=== PATIENT | female | born 1995 | race African-American/Black ===

== ENCOUNTER 2017-06-03 23:16 | Emergency (ER) | payer SELFPAY ==
[~2017-06-03] VITALS: Ht 167.6 cm; Wt 91.6 kg
[2017-06-03 23:37] VITALS: BP_SYST 132
[2017-06-03] MEDS ORDERED: NACL 0.9% 1,000 ML IV ONE ×2 (23:40→23:45)
[2017-06-03] MEDS ORDERED: ONDANSETRON HCL 4 MG/2 ML VIAL IVP ONE (23:45)
[2017-06-03 23:57] LABS: BASOPHILS % (AUTO) 0.5 % (0.0-2.0); EOSINOPHILS # (AUTO) 0.1 K/uL (0.0-0.4); EOSINOPHILS % (AUTO) 1.9 % (0.0-4.0); HEMATOCRIT 41.4 % (36-48); HEMOGLOBIN 13.4 g/dL (12.0-16.0); LYMPHOCYTES # (AUTO) 2.1 K/uL (1.0-5.5); LYMPHOCYTES % (AUTO) 36.5 % (20.5-51.5); MEAN CORPUSCULAR HEMOGLOBIN 29 pg (27-31); MEAN CORPUSCULAR HGB CONC 33 % (32-36); MEAN CORPUSCULAR VOLUME 90 fL (79.0-98.0); MONOCYTES # (AUTO) 0.4 K/uL (0.0-1.0); MONOCYTES % (AUTO) 6.9 % (1.7-9.3); NEUTROPHILS # (AUTO) 3.2 K/uL (1.8-7.7); NEUTROPHILS % (AUTO) 54.2 % (40.0-70.0); PLATELET COUNT (AUTO) 351 K/uL (130-430); RED CELL DISTRIBUTION WIDTH 13.3 % (9.0-15.0); WHITE BLOOD COUNT (AUTO) 5.8 K/uL (4.8-10.8)
[2017-06-04 00:13] LABS: ALBUMIN 3.6 g/dL (3.4-4.8); CALCIUM 8.6 mg/dL (8.4-11.0); CREATININE 1.14 mg/dL (0.55-1.30); TOTAL BILIRUBIN 0.1 mg/dL (0.0-1.0)
[2017-06-04] MEDS ORDERED: POTASSIUM CHLORIDE 10 MEQ TAB.PRT.SR PO ONE (00:30)
[2017-06-04 02:15] LABS: BILIRUBIN,URINE NEGATIVE (NEGATIVE); BLOOD, URINE NEGATIVE (NEGATIVE); CLARITY/URINE SL HAZY (CLEAR); COLOR,URINE YELLOW (YELLOW); GLUCOSE,URINE NEGATIVE (NEGATIVE); KETONES,URINE NEGATIVE (NEGATIVE); LEUKOCYTE ESTERASE ,URINE NEGATIVE (NEGATIVE); NITRITE, URINE NEGATIVE (NEGATIVE); PROTEIN URINE NEGATIVE (NEGATIVE); UROBILINOGEN,URINE 0.2 (0.2-1.0)
[2017-06-04 02:36] LABS: BARBITURATE, URINE NEGATIVE (NEG <=200); BENZODIAZEPINE, URINE NEGATIVE (NEG <=150); COCAINE, URINE NEGATIVE (NEG <=150); METHAMPHETAMINES SCREEN,URINE NEGATIVE (NEG <=500); OPIATE, URINE NEGATIVE (NEG <=100); PHENCYCLIDINE SCREEN,URINE NEGATIVE (NEG <=25); UR TRICYCLIC ANTIDEPRESSANTS NEGATIVE (NEG <=300); URINE AMPHETAMINE NEGATIVE (NEG <=500); URINE METHADONE NEGATIVE (NEG <=200); URINE OXYCODONE SCREEN NEGATIVE (NEG <=100); URINE PROPOXYPHENE SCREEN NEGATIVE (NEG <=300)
[2017-06-04 02:37] LABS: CANNABINOID, URINE POSITIVE (NEG <=50)
[2017-06-04 03:03] VITALS: BP_SYST 128
== END 2017-06-04 03:03 | disposition home or self-care (01) ==
LOC: SED 23:16
DX: E87.6 Hypokalemia (principal); R11.2 Nausea with vomiting, unspecified; R03.0 Elevated blood-pressure reading, without diagnosis of hypertension
CPT/HCPCS: 36415; 80053; 80307; 81003; 81025; 82150; 83690; 85025; 96361; 96374; 99284; J2405; J7030

== ENCOUNTER 2017-12-17 20:39 | Emergency (ER) | payer SELFPAY ==
[~2017-12-17] VITALS: Ht 167.6 cm; Wt 92.1 kg
[2017-12-17 20:47] VITALS: BP_SYST 148
[2017-12-17 21:48] LABS: BILIRUBIN,URINE NEGATIVE (NEGATIVE); BLOOD, URINE NEGATIVE (NEGATIVE); CLARITY/URINE CLEAR (CLEAR); COLOR,URINE YELLOW (YELLOW); GLUCOSE,URINE NEGATIVE (NEGATIVE); KETONES,URINE NEGATIVE (NEGATIVE); LEUKOCYTE ESTERASE ,URINE NEGATIVE (NEGATIVE); NITRITE, URINE NEGATIVE (NEGATIVE); PH,URINE 5.5 (5.0-8.0); PROTEIN URINE NEGATIVE (NEGATIVE); UROBILINOGEN,URINE 0.2 (0.2-1.0)
[2017-12-18 00:10] VITALS: BP_SYST 148
== END 2017-12-18 00:10 | disposition home or self-care (01) ==
LOC: SED 20:39
DX: S80.01XA Contusion of right knee, initial encounter (principal); S00.83XA Contusion of other part of head, initial encounter; R03.0 Elevated blood-pressure reading, without diagnosis of hypertension; X58.XXXA Exposure to other specified factors, initial encounter; Y93.89 Activity, other specified; Y92.89 Other specified places as the place of occurrence of the external cause; Y99.8 Other external cause status
CPT/HCPCS: 70486-TC; 81003; 81025; 99285

== ENCOUNTER 2018-09-23 21:32 | Emergency (ER) | payer SELFPAY ==
[~2018-09-23] VITALS: Ht 167.6 cm; Wt 89.8 kg
[2018-09-23 21:45] VITALS: BP_SYST 130
[2018-09-23 21:51] VITALS: BP_SYST 130
[2018-09-23] MEDS ORDERED: DIPHENHYDRAMINE HCL 25 MG CAPSULE PO ONE (22:00)
[2018-09-23] MEDS ORDERED: PREDNISONE 20 MG TABLET PO ONE (22:00)
== END 2018-09-23 22:05 | disposition home or self-care (01) ==
LOC: SED 21:32
DX: L23.89 Allergic contact dermatitis due to other agents (principal)
CPT/HCPCS: 99283; J7512; Q0163

== ENCOUNTER 2018-12-11 09:15 | Emergency (ER) | payer MEDICAID ==
[~2018-12-11] VITALS: Ht 167.6 cm; Wt 90.7 kg
[2018-12-11 09:15] VITALS: BP_SYST 100
--- NOTE | 2018-12-11 09:15 | NUR ---
BROUGHT BACK TO BED #7 AND TRIAGED, REPORT GIVEN TO AFSHIN
--- NOTE | 2018-12-11 09:20 | NUR ---
pt arrives from home w/ c/o left foot pain since 11/13. Pt stated that she was getting out of the shower and somehow injured her foot. No other complaints at the moment.
--- NOTE | 2018-12-11 09:27 | NUR ---
ER at bedside examining patient.
--- NOTE | 2018-12-11 09:33 | NUR ---
X-ray at the bedside.
[2018-12-11 09:58] VITALS: BP_SYST 100
--- NOTE | 2018-12-11 10:00 | NUR ---
Patient given written and verbal discharge instructions and verbalizes understanding. ER MD discussed with patient the results and treatment provided. Patient in stable condition. ID arm band removed. Rx of Motrin given. Patient educated on pain management and to follow up with PMD. Pain Scale 3/10.Opportunity for questions provided and answered. Medication side effect fact sheet provided.
== END 2018-12-11 10:00 | disposition home or self-care (01) ==
LOC: SED 09:15
DX: S93.401A Sprain of unspecified ligament of right ankle, initial encounter (principal); X50.1XXA Overexertion from prolonged static or awkward postures, initial encounter; Y93.89 Activity, other specified; Y92.89 Other specified places as the place of occurrence of the external cause; Y99.8 Other external cause status
CPT/HCPCS: 99283

== ENCOUNTER 2020-07-28 20:25 | Emergency (ER) | payer MEDICAID ==
[~2020-07-28] VITALS: Ht 167.6 cm; Wt 72.6 kg
[2020-07-28 20:35] VITALS: BP_SYST 111
[2020-07-28 20:58] LABS: BASOPHILS % (AUTO) 0.3 % (0.0-2.0); EOSINOPHILS # (AUTO) 0.1 K/uL (0.0-0.4); EOSINOPHILS % (AUTO) 3.6 % (0.0-4.0); HEMATOCRIT 35.9 % (36-48); HEMOGLOBIN 12.2 g/dL (12.0-16.0); LYMPHOCYTES # (AUTO) 1.6 K/uL (1.0-5.5); LYMPHOCYTES % (AUTO) 41.6 % (20.5-51.5); MEAN CORPUSCULAR HEMOGLOBIN 31 pg (27-31); MEAN CORPUSCULAR HGB CONC 34 % (32-36); MEAN CORPUSCULAR VOLUME 90 fL (79.0-98.0); MONOCYTES # (AUTO) 0.3 K/uL (0.0-1.0); MONOCYTES % (AUTO) 8.6 % (1.7-9.3); NEUTROPHILS # (AUTO) 1.8 K/uL (1.8-7.7); NEUTROPHILS % (AUTO) 45.9 % (40.0-70.0); PLATELET COUNT (AUTO) 287 K/uL (130-430); RED BLOOD CELL COUNT(AUTO) 3.99 MIL/uL (4.2-6.2); RED CELL DISTRIBUTION WIDTH 14.8 % (9.0-15.0); WHITE BLOOD COUNT (AUTO) 3.9 K/uL (4.8-10.8)
[2020-07-28 20:59] LABS: BILIRUBIN,URINE NEGATIVE (NEGATIVE); BLOOD, URINE 3+ (NEGATIVE); CLARITY/URINE CLOUDY (CLEAR); COLOR,URINE RED (YELLOW); GLUCOSE,URINE NEGATIVE (NEGATIVE); KETONES,URINE NEGATIVE (NEGATIVE); LEUKOCYTE ESTERASE ,URINE NEGATIVE (NEGATIVE); NITRITE, URINE NEGATIVE (NEGATIVE); PROTEIN URINE 3+ (NEGATIVE); UROBILINOGEN,URINE 0.2 (0.2-1.0)
[2020-07-28 21:04] LABS: BACTERIA,URINE FEW /HPF (None Seen); MUCUS,URINE None Seen /LPF (None Seen); RBC,URINE >100 /HPF (0-3); WBC,URINE 0-3 /HPF (0-3)
[2020-07-28 21:14] LABS: INR 0.9 (0.8-1.2); PROTHROMBIN TIME 9.4 SECS (9.5-12.5)
[2020-07-28 21:20] LABS: CALCIUM 8.4 mg/dL (8.4-11.0); POTASSIUM 4.1 mmol/L (3.5-5.1)
[2020-07-28 21:21] LABS: ALBUMIN 3.6 g/dL (3.4-4.8); CREATININE 0.98 mg/dL (0.55-1.30); TOTAL BILIRUBIN 0.1 mg/dL (0.0-1.0)
[2020-07-28] MEDS ORDERED: HYDR-3917 PO (21:49)
[2020-07-28] MEDS ORDERED: MISO200T PO (21:49)
[2020-07-28] MEDS ORDERED: MISOPROSTOL 100 MCG TABLET (CYTOTEC) PO ONE (22:00)
[2020-07-28] MEDS ORDERED: MISOPROSTOL 100 MCG TABLET (CYTOTEC) ONE (22:14)
[2020-07-28 22:20] VITALS: BP_SYST 105
== END 2020-07-28 22:31 | disposition home or self-care (01) ==
LOC: SED 20:25
DX: O03.9 Complete or unspecified spontaneous abortion without complication (principal); Z79.899 Other long term (current) drug therapy
CPT/HCPCS: 36415; 76801; 76817; 80053; 81000; 81025; 84702; 85025; 85610-TC; 85730-TC; 86900; 86901; 99284

== ENCOUNTER 2022-10-31 15:39 | Emergency (ER) | payer MEDICAID ==
[~2022-10-31] VITALS: Ht 170.2 cm; Wt 104.3 kg
[~2022-10-31 15:39] MED LIST: HYDR-3917 PO; MISO200T PO
[2022-10-31 15:40] VITALS: BP_SYST 125; PULSE 72; RESP 18; TEMP 97.7; O2SAT 96
[2022-10-31] MEDS ORDERED: KETOROLAC TROMETHAMINE 60 MG/2 ML VIAL IM ONE ×2 (16:15→18:34)
[2022-10-31 18:15] LABS: BILIRUBIN,URINE NEGATIVE (NEGATIVE); BLOOD, URINE NEGATIVE (NEGATIVE); COLOR,URINE YELLOW (YELLOW); GLUCOSE,URINE NEGATIVE (NEGATIVE); KETONES,URINE NEGATIVE (NEGATIVE); LEUKOCYTE ESTERASE ,URINE NEGATIVE (NEGATIVE); NITRITE, URINE NEGATIVE (NEGATIVE); PROTEIN URINE NEGATIVE (NEGATIVE); UROBILINOGEN,URINE 0.2 (0.2-1.0)
[2022-10-31 18:23] LABS: HCG,QUAL RESULT NEGATIVE (NEGATIVE)
[2022-10-31] MEDS ORDERED: DICL20GE TP (19:50)
[2022-10-31] MEDS ORDERED: DICL75TA5 PO (19:50)
[2022-10-31 20:26] VITALS: BP_SYST 134; PULSE 74; RESP 18; TEMP 98.3; O2SAT 97
[2022-10-31 21:17] LABS: CLARITY/URINE CLEAR (CLEAR)
== END 2022-10-31 20:23 | disposition home or self-care (01) ==
LOC: SED 15:39
DX: S39.012A Strain of muscle, fascia and tendon of lower back, initial encounter (principal); Z79.899 Other long term (current) drug therapy; X58.XXXA Exposure to other specified factors, initial encounter; Y93.89 Activity, other specified; Y92.89 Other specified places as the place of occurrence of the external cause; Y99.8 Other external cause status
CPT/HCPCS: 99284; 84703; 72100; 81025; 96372; 81003; J1885